=== PATIENT | female | born 1960 ===

== ENCOUNTER → 2024-01-11 08:34 | Outpatient (CLI) | payer OTHER ==
[2024-01-11 09:44] LABS: HEMATOCRIT 40.3 % (36.0-45.00); HEMOGLOBIN 13.4 g/dL (12.0-15.00); MEAN CELL VOLUME 87.4 fL (80.00-100.00); MEAN CORPUSCULAR HEMOGLOBIN 29.1 pg (27.00-32.0); MEAN CORPUSCULAR HGB CONC 33.3 g/dl (32.0-36.0); PLATELET COUNT 239 K/uL (150-450); RED BLOOD COUNT 4.61 M/uL (4.00-6.00); RED CELL DISTRIBUTION WIDTH 14.7 % (11.5-14.5)
[2024-01-11 09:48] LABS: PH,URINE 6.5 (5.0-8.0); URINE APPEARANCE Clear; URINE BILIRRUBIN Negative (NEGATIVE); URINE BLOOD Negative; URINE COLOR Dark Yellow; URINE GLUCOSE Negative (NEGATIVE); URINE KETONE Negative (NEGATIVE); URINE LEUKOCYTE Trace; URINE NITRATE Negative; URINE PROTEIN Negative (NEGATIVE); URINE UROBILINOGEN 0.2 E.U./dl
[2024-01-11 09:52] LABS: URINE BACTERIA 57.9 uL (0.0-1933); URINE EPITHELIAL CELLS 6.6 uL (0.0-38.8); URINE RBC 9.4 uL (0.0-20.8); URINE WBC 24.8 uL (0.0-23.2)
[2024-01-11 10:38] LABS: INR 0.98; PARTIAL THROMBOPLASTIN TIME 32.9 SECONDS (22.0-34.0)
[2024-01-11 10:40] LABS: PROTHROMBIN TIME 10.7 SECONDS (9.0-11.5)
[2024-01-11 10:59] LABS: ALBUMIN 4.1 gm/dL (3.4-5.0); BILIRUBIN TOTAL 0.34 mg/dL (0.3-1.2); CALCIUM 9.5 mg/dL (8.5-10.1); CREATININE SERUM 0.67 mg/dL (0.55-1.02); GFR 89.18; GLOBULINA 3.5 G/DL (2.4-3.5); MAGNESIUM 2.3 mg/dL (1.8-2.4); POTASSIUM 4.37 mEq/L (3.5-5.1); TOTAL PROTEIN 7.6 gm/dL (6.4-8.2)
[2024-01-11 11:04] LABS: COL ADP 77 SECONDS (56-102); COL EPI 131 SECONDS (82-175)
== END | disposition home or self-care (01) ==
LOC: LAB 08:34
PROVIDERS: ATTEND Orthopaedic Surgery
DX: D64.9 Anemia, unspecified (principal); E88.89 Other specified metabolic disorders; D68.8 Other specified coagulation defects; N39.0 Urinary tract infection, site not specified; Z22.322 Carrier or suspected carrier of Methicillin resistant Staphylococcus aureus; I10 Essential (primary) hypertension; Z76.89 Persons encountering health services in other specified circumstances; E55.9 Vitamin D deficiency, unspecified; M85.9 Disorder of bone density and structure, unspecified; E56.1 Deficiency of vitamin K

== ENCOUNTER 2024-01-25 07:15 | Outpatient (CLI) | payer OTHER | END 2024-01-25 07:20 | disposition home or self-care (01) | LOC: LAB 07:15 | PROVIDERS: ATTEND Orthopaedic Surgery | DX: Z22.322 Carrier or suspected carrier of Methicillin resistant Staphylococcus aureus (principal) ==